=== PATIENT | male | born 1960 | race Caucasian/White ===

== ENCOUNTER 2018-01-12 14:41 | Observation (INO) ==
--- NOTE | 2018-01-12 14:51 | Emergency Department Note ---
Disposition Clinical Impression: Cerebrovascular accident Qualifiers: CVA mechanism: unspecified Qualified Code(s): I63.9 - Cerebral infarction, unspecified Disposition: Admitted As Inpatient Condition: Undetermined Referrals: NONE,PCP [Primary Care Provider] - Forms: ED Satisfaction Letter Time of Disposition: 16:17 Neuro HPI - General Chief Complaint: ED Headache Stated Complaint: ONEAL/N/T Time Seen by Provider: 01/12/18 14:44 Source: patient Mode of arrival: ambulatory Limitations: no limitations Nursing Notes Reviewed: Yes Vital Signs Reviewed: Yes - History of Present Illness HPI Narrative: 57-year-old male with uncontrolled hypertension arrives to the emergency department with complaint of right sided facial and upper and lower extremity numbness and paresthesias that started at roughly 1400, roughly 45 minutes prior to arrival. The patient denies any weakness, confusion, difficulty with vision, or any other associated complaints at this time. He is resting comfortably in the room. Last known well at 1400. The patient denies any previous CVA in the past. Patient states he is noncompliant with his medications. - Related Data Home Medications: Home Medications Medication Instructions Recorded Confirmed No Known Home Drugs 01/12/18 01/12/18 Allergies/Adverse Reactions: Allergies Allergy/AdvReac Type Severity Reaction Status Date / Time No Known Allergies Allergy Verified 01/12/18 15:08 All systems ED: reviewed and negative except as stated. Constitutional: Denies: fever, chills, weakness ENT ED: Denies: dysphagia Cardiovascular: Denies: chest pain Respiratory: Denies: dyspnea Gastrointestinal: Denies: abdominal pain Genitourinary: Denies: urgency Musculoskeletal: Denies: back pain Integumentary: Denies: rash Neurological: Reports: numbness, paresthesias. Denies: headache, weakness, confusion, abnormal gait Past Medical History - Past Medical History Attestation: Yes The following information was validated with the patient. Source: patient Medical history: Reports: hypertension Surgical history: Reports: non-contributory - Social History Smoking Status: Smoker, status unknown Alcohol use: Reports: none Drug use: Reports: none Physical Exam - General Limitations: no limitations General appearance: alert, in no apparent distress - Head Head exam: atraumatic, normocephalic, normal inspection - Eye Eye exam: Present: normal appearance, PERRL, EOMI - ENT ENT exam: normal exam, normal oropharynx, mucous membranes moist - Neck Neck exam: Present: normal inspection, full ROM, trachea midline - Chest Chest inspection: Present: normal inspection, symmetric chest wall rise - Respiratory Respiratory exam: Present: normal lung sounds bilaterally - Cardiovascular Cardiovascular exam: Present: regular rate, normal rhythm, normal heart sounds - Abdominal Exam Abdominal exam: Present: soft, Non-Tender. Absent: tenderness, distention, guarding, rebound, rigidity - Extremities Exam Extremities exam: Present: normal inspection, full ROM. Absent: tenderness, pedal edema - Neurological Exam Neurological exam: Present: alert, oriented X3, CN II-XII intact, normal gait - Expanded Neurological Exam Patient oriented to: Present: person, place, time Speech: Present: fluid speech Cranial nerves: EOM function (II, III, IV, ): Normal, facial sensation (V): Normal, facial palsy (VII): Abnormal Right Cerebellar function: finger to nose: Normal Cerebellar function: normal gait Motor strength - LUE: 5/5 Motor strength - RUE: 5/5 Motor strength - LLE: 5/5 Motor strength - RLE: 5/5 Sensory exam upper extremity: light touch: Abnormal Right Sensory exam lower extremity: light touch: Abnormal Right Coma Scale Eye Opening: Spontaneous Coma Scale Motor Response: Obeys Commands Coma Scale Verbal Response: Oriented Coma Scale Total: 15 - Skin Skin exam: Present: warm, dry, intact, normal color Course Vital Signs Temperature 98.7 F 01/12/18 14:48 Pulse Rate 72 01/12/18 14:48 Respiratory Rate 18 01/12/18 14:48 Blood Pressure 177/87 01/12/18 14:48 O2 Sat by Pulse Oximetry 98 01/12/18 14:48 Temperature 98.7 F 01/12/18 14:48 Pulse Rate 60 01/12/18 16:23 Respiratory Rate 20 01/12/18 15:30 Blood Pressure 168/104 01/12/18 16:23 O2 Sat by Pulse Oximetry 94 01/12/18 16:23 Oxygen Delivery Oxygen Delivery Room Air Neuro Symptoms/Deficit - MDM Narrative Medical decision making narrative: Patient's head CT given streets no acute process. The patient was noted to have an NIH of 1. The patient had consultation with [facility] neurology, Dr. Kern , Who did not recommend TPA. Even the patient's improvement of right lower extremity numbness, we will admit the patient to the hospital with a diagnosis of CVA versus TIA. The patient will likely need CTA of the head and neck as well as Doppler ultrasounds of the carotids an MRI. The patient will be given aspirin here in the emergency department. He will be admitted to the hospital at this time. Accepted by Dr. Ortega. - Lab Data Lab results reviewed: Yes I reviewed the patient's lab results. Result diagrams: 01/12/18 14:55 01/12/18 14:55 Lab Results 01/12/18 01/12/18 01/12/18 Range/Units 14:55 14:55 14:55 WBC 7.9 (4.3-11.1) K/mcL RBC 5.39 (4.19-5.50) M/mcL Hgb 17.5 H (12.9-16.9) g/dL Hct 48.5 (37.5-50.1) % MCV 90.0 (83.0-100.0) fL MCH 32.5 (28.0-33.3) pg MCHC 36.1 H (31.6-35.5) g/dL RDW 12.8 (11.5-14.5) % Plt Count 211 (140-400) K/mcL MPV 10.2 (9.4-12.4) fL Immature Gran % 0.5 (0-4) % Seg Neutrophils % 64.3 % Lymphocytes % 21.4 % Monocytes % 8.0 % Eosinophils % 5.4 % Basophils % 0.4 % Neutrophils # 5.1 (1.6-8.9) K/mcL Lymphocytes # 1.7 (0.6-4.6) K/mcL Monocytes # 0.6 (0.0-1.3) K/mcL Eosinophils # 0.4 (0.0-0.6) K/mcL Basophils # 0.0 (0.0-0.2) K/mcL Immature Plt Fraction 5.0 (1.1-6.1) % PT 11.6 (9.4-12.1) Seconds INR 1.0 APTT 36.6 H (26.0-36.0) Seconds Sodium 140 (136-145) mEq/L Potassium 3.8 (3.5-5.1) mEq/L Chloride 107 (98-107) mEq/L Carbon Dioxide 30 H (23-29) mEq/L BUN 14 (6-20) mg/dL Creatinine 1.20 (0.70-1.30) mg/dL Est GFR ( Amer) > 60 (> 60) Est GFR (Non-Af Amer) > 60 (> 60) BUN/Creatinine Ratio 12 (6-26) Glucose 115 H (70-105) mg/dL Calculated Osmolality 291 (280-300) Calcium 9.2 (8.6-10.3) mg/dL Troponin I < 0.03 (< 0.04) ng/mL - Radiology Data Radiology results reviewed: Yes I reviewed the patient's radiology results. Head CT 01/12/18 14:50 IMPRESSION: No acute intracranial abnormality. Evidence of a remote lacunar infarct along the left basal ganglia. Patchy hypodensities in the periventricular and subcortical white matter, which are nonspecific, but may represent chronic small vessel ischemic change. D/ / 01/12/2018 15:35:01 Jl Lee MD / kevan Interpreting Provider: Jl Lee MD - EKG Data EKG attestation: Yes I reviewed and interpreted this EKG. EKG results narrative: Heart rate 62 beats for minute. Normal sinus rhythm. No ST elevation or ST depression noted. No acute changes noted. NIH Stroke Scale - Level of Consciousness LOC: Alert - LOC Questions LOC Questions: Answers both correctly - LOC Commands LOC Commands: Performs both correctly - Best Gaze Best Gaze: Normal - Visual Visual: No visual loss - Facial Palsy Facial Palsy: Normal - Motor Arms Motor Arm-Left: No drift for 10 seconds Motor Arm-Right: No drift for 10 seconds - Motor Legs Motor Leg-Left: No drift for 5 seconds Motor Leg-Right: No drift for 5 seconds - Limb Ataxia Limb Ataxia: Normal, No Ataxia - Sensory Sensory: Mild to moderate loss, "not as sharp" - Best Language Best Language: No aphasia - Dysarthria Dysarthria: Normal - Extinction and Inattention Extinction and Inattention: Normal - NIHSS Total Score NIHSS Total Score: 1 Attestation Statement - Attestation Attestation: I examined this patient and my medical decision-making was reviewed with the Resident Physician. I agree with the documented findings, disposition and treatment plan as described except to the extent set forth below. An age score is 1, sensory impairment only, patient was evaluated emergently with head CT which is remote infarct, will give aspirin. We did discuss with the on-call neurologist and through direct visualization with [facility] stroke work the possibility of giving TPA however the patient is advised the risks and benefits by the on-call neurologist rectally via video conference. The patient is not in agreement to receive TPA at this time. His symptoms are improving. Suspect TIA. I spent greater than 35 minutes of critical care time resuscitating this acutely ill patient suffering from TIA versus CVA. This was excluding billable procedures.
[2018-01-12 15:03] LABS: Basophils % 0.4 %; Eosinophils # 0.4 K/mcL (0.0-0.6); Eosinophils % 5.4 %; Hematocrit 48.5 % (37.5-50.1); Hemoglobin 17.5 g/dL (12.9-16.9); Immature Granulocytes % 0.5 % (0-4); Lymphocytes # 1.7 K/mcL (0.6-4.6); Lymphocytes % 21.4 %; Mean Corpuscular HGB Conc 36.1 g/dL (31.6-35.5); Mean Corpuscular Hemoglobin 32.5 pg (28.0-33.3); Mean Platelet Volume 10.2 fL (9.4-12.4); Monocytes # 0.6 K/mcL (0.0-1.3); Neutrophils # 5.1 K/mcL (1.6-8.9); Platelet Count 211 K/mcL (140-400); Red Blood Count 5.39 M/mcL (4.19-5.50); Red Cell Distribution Width 12.8 % (11.5-14.5); Segmented Neutrophils % 64.3 %
[2018-01-12 15:07] LABS: Prothrombin Time 11.6 Seconds (9.4-12.1)
[2018-01-12 15:10] LABS: Activated Partial Thrombo Time 36.6 Seconds (26.0-36.0)
[2018-01-12 15:21] LABS: Troponin I < 0.03 ng/mL (< 0.04)
[2018-01-12 15:27] LABS: BUN/Creatinine Ratio 12 (6-26); Blood Urea Nitrogen 14 mg/dL (6-20); Calcium 9.2 mg/dL (8.6-10.3); Carbon Dioxide 30 mEq/L (23-29); Chloride 107 mEq/L (98-107); Glucose 115 mg/dL (70-105); Osmolality,Calculated 291 (280-300); Potassium 3.8 mEq/L (3.5-5.1); Sodium 140 mEq/L (136-145); eGFR For Non-African Americans > 60 (> 60)
[2018-01-12] MEDS ORDERED: Aspirin 325 MG TABLET PO ONE (16:02)
[2018-01-12] MEDS ORDERED: Naloxone 0.4 MG/ML INJ IVP PRN (19:25)
[2018-01-12] MEDS ORDERED: Isovue-370 500 ML INFUS..BTL IV ONE (19:32)
--- NOTE | 2018-01-12 21:08 | Internal Med History&Physical ---
Date of Encounter: 01/12/18 Time of Encounter: 19:30 Internal Medicine - H&P: HPI Chief complaint: R sided numbness Admitted From: Home History of present illness: Mr. Garcia is a 57 year old male with past history of hypertension complicated by noncompliance to medication presented to the ED with acute onset of right- sided numbness. Started at 2 PM, while he was working on his phone. Sudden, associated with numbness of right side of the face, UE, and LE. No facial droop , slurring of speech, headache, blurring of vision, or vertigo. No dysphagia, dysphonia, or diplopia. Did not have any similar episodes in the past. Currently smoking half a pack a day for the last 40 years. In the ED, he was afebrile and hemodynamically stable. NIHSS [address] head negative for acute intracranial processes but showed old lacunar infarct in left basal ganglia. He presented 45 minutes after the onset of his symptoms and after discussing with the on-call neurologist at [facility] stroke, the decision was made to defer tPA as patient was not in agreement to receive the therapy and his symptoms have been improving. He was given aspirin and admitted for further management Past Med Surg Social Fam HX - Past Medical History Attestation: Yes The following information was validated with the patient. Medical history: hypertension Psychiatric history: no psych history - Past Surgical History Surgical History: non-contributory - Social History Smoking Status: Smoker, status unknown Packs per day: 1/2 Smokeless Tobacco Status: No Alcohol use: none Drug use: none - Family History Father Living Status: Hx Family Cancer: Yes Mother Living Status: Cause of : brain aneurysm Internal Medicine - H&P: Meds No Known Home Drugs 01/12/18 [History] 3 Allergy/AdvReac Type Severity Reaction Status Date / Time No Known Allergies Allergy Verified 01/12/18 15:08 All Systems PM: A 10-system review of systems was performed and is negative for pertinent findings except as documented above in the HPI. - Constitutional Vitals: Temp Pulse Resp BP Pulse Ox 98 F 62 15 146/96 97 01/12/18 18:20 01/12/18 18:20 01/12/18 18:20 01/12/18 18:20 01/12/18 20:14 Exam: General: Alert and oriented HEENT:EOM, pupils equal, round, and reactive. Cardiovascular:Normal S1 & S2, no murmurs or gallops. No JVD. Pulse regular. Lungs:Normal breath sounds, no wheezes or crackles. Abdomen:Soft, non-tender, no rigidity. Extremities:No deformity, no edema or tenderness, no joint swelling. Neurological: CN II-XII intact, full motor function in all 4 limbs. Paresthesia over R upper/lower face, R UE, R LE. No pronator drift. Babinski downgoing. No cerebellar signs. Skin:Normal color, no rash, no lesions. Pulses:Carotid and radial pulses normal +2. Rest of the physical exam is non-contributory Internal Med - H&P Results - Labs CBC & Chem 7: 01/12/18 14:55 01/12/18 14:55 - Assessment and plan (1) TIA (transient ischemic attack) Current Visit: Yes Status: Acute Assessment and plan: Symptoms suggestive of acute neurological insult, especially with his risk factors of HTN and smoking Did not get TPA as per patient preference. Loaded with aspirin in the ED, continue NIH score per protocol check lipid panel, A1c telemetry to look for arrhythmia MRI brain head and neck vasculature imaging with CT echocardiogram PT/OT (2) Hypertension Current Visit: Yes Status: Chronic Assessment and plan: Allow permissive hypertension Qualifiers: Hypertension type: unspecified Qualified Code(s): I10 - Essential (primary ) hypertension (3) Tobacco use disorder Current Visit: Yes Status: Acute Assessment and plan: Counseled on smoking cessation Nicotine replacement therapy (4) DVT prophylaxis Current Visit: Yes Status: Acute Assessment and plan: SQ heparin - Time Spent With Patient Total time spent is greater than 50% in coordination of care (as documented) at patient's floor/unit and/or counseling patient:
[2018-01-12] MEDS: Nicotine 14 MG PATCH.TD24 TD SCH (22:38)
[2018-01-13 05:31] LABS: Basophils % 0.2 %; Eosinophils # 0.4 K/mcL (0.0-0.6); Eosinophils % 5.5 %; Hematocrit 45.5 % (37.5-50.1); Hemoglobin 16.4 g/dL (12.9-16.9); Immature Granulocytes % 0.5 % (0-4); Lymphocytes # 1.6 K/mcL (0.6-4.6); Lymphocytes % 20.1 %; Mean Corpuscular Hemoglobin 31.7 pg (28.0-33.3); Mean Corpuscular Volume 87.8 fL (83.0-100.0); Mean Platelet Volume 10.4 fL (9.4-12.4); Monocytes # 0.6 K/mcL (0.0-1.3); Monocytes % 7.8 %; Neutrophils # 5.3 K/mcL (1.6-8.9); Platelet Count 203 K/mcL (140-400); Red Blood Count 5.18 M/mcL (4.19-5.50); Red Cell Distribution Width 12.9 % (11.5-14.5); Segmented Neutrophils % 65.9 %
[2018-01-13 05:51] LABS: Alanine Aminotransferase 37 Units/L (7-52); Albumin/Globulin Ratio 1.8 (1.1-2.2); Alkaline Phosphatase 68 Units/L (34-104); Aspartate Amino Transferase 26 Units/L (13-39); BUN/Creatinine Ratio 16 (6-26); Bilirubin,Total 0.5 mg/dL (0.3-1.0); Blood Urea Nitrogen 15 mg/dL (6-20); Calcium 8.8 mg/dL (8.6-10.3); Carbon Dioxide 24 mEq/L (23-29); Chloride 107 mEq/L (98-107); Chol/HDL Ratio 3.6 (0-4.9); Cholesterol 123 mg/dL (< 200); Globulin 2.2 g/dL (2.4-3.5); Glucose 111 mg/dL (70-105); HDL Cholesterol 34 mg/dL (40-59); LDL Cholesterol,Calculated 70 mg/dL (0-99); Osmolality,Calculated 288 (280-300); Potassium 3.4 mEq/L (3.5-5.1); Sodium 138 mEq/L (136-145); Total Protein 6.2 g/dL (6.4-8.9); Triglycerides 95 mg/dL (< 150); eGFR For Non-African Americans > 60 (> 60)
[2018-01-13] MEDS: *HR* Heparin 5,000 UNIT/ML VIAL SQ SCH ×2 (06:51→16:46)
[2018-01-13 06:54] LABS: Estimated Average Glucose 114 mg/dl; Hemoglobin A1C 5.6 %
[2018-01-13] MEDS ORDERED: Aspirin Enteric Coated 81 MG Tablet PO SCH (09:00)
[2018-01-13] MEDS: Nicotine 14 MG PATCH.TD24 TD SCH (09:07)
--- NOTE | 2018-01-13 09:58 | Internal Med Progress Note ---
<Magali Cornejo P - Last Filed: 01/13/18 17:21> Date of Encounter: 01/13/18 Time of Encounter: 10:00 - Assessment and plan (1) Hypertension Status: Chronic Assessment and plan: He is a know case of HTN under medication His recent BP under control : 147/87 Qualifiers: Hypertension type: unspecified Qualified Code(s): I10 - Essential (primary ) hypertension (2) Cerebrovascular accident Status: Acute Assessment and plan: He has right sided paresthesia in face, upper and lower extremities. He is on Asprin CT head : remote lacunar infarct left side Patchy hypodensities in periventricular and subcortical area . CT angio head and neck awaited and MRI brain report; Left thalamic infarction and chronic microvascular ischaemic changes Neurology physican , occupational and physical therapist involved Qualifiers: CVA mechanism: embolism Qualified Code(s): I63.412 - Cerebral infarction due to embolism of left middle cerebral artery - Subjective Interval history: Today is 1st day of admission.He is a 57 year old male with hypertension non compliance to medication presented to the ED with acute onset of right-sided numbness and paresthesia . It started while he was working on his phone. The paresthesia was Sudden, associated with numbness of right side of the face, upper and lower extremity . No facial droop, slurring of speech, headache, blurring of vision, or vertigo,LOC,fall , seizure . He denies dysphagia, dysphonia, or diplopia. It is first episode . He is a chronic smoker smoking half a pack a day for the last 40 years. In ED ,CT head was negative for acute intracranial processes but showed old lacunar infarct in left basal ganglia. He presented 45 minutes after the onset of his symptoms an decision was made to defer tPA as patient was not in agreement to receive the therapy and his symptoms have been improving. He is on aspirin and heparine . He states that the paresthesia in lower limb is getting better and upper limb and face is the same but not getting worse. CT head shows: Remote lacunar infarct , patchy hypodensities in periventricular and subcortical area.CT angio head and neck awaited: MRI brain report : Left thalamic infarction and chronic microvascular changes. Neuro/occupational Physical therapist has already been scheduled Todays Vital BP 147/87 , afebrile - Constitutional Vitals: Temp Pulse Resp BP Pulse Ox 97.9 F 60 17 147/86 95 01/13/18 07:20 01/13/18 07:20 01/13/18 07:20 01/13/18 07:20 01/13/18 07:20 - Head Head exam: Present: atraumatic, normal inspection, normocephalic - Neck Additional comments: No JVD , supple - Respiratory Additional comments: Normal chest expansion, normal air entry both side, no rales or rhonchi - Cardiovascular Additional comments: Normal rate and rhythm, S1S2 normal, no murmur or added sound - GI/Abdominal Additional comments: Soft warm ,no tenderness ,no organomegaly, BS + - Neurological Exam Neurological exam: Present: abnormal gait, alert, CN II-XII intact, oriented X3 , reflexes normal Additional comments: He has paresthesia in right side , it is more prominent in right side of face and upper extremity , but present in lower extremity , but less, no facial deviation. He has normal motor strength 5/5 in both upper and lower limb , reflexes normal, no muscle wasting, no foot drop, no swelling in calf, peripheral pulsation intact. Internal Medicine: Result - Labs CBC & Chem 7: 01/13/18 04:45 01/13/18 04:45 Labs: Short CBC 01/13/18 Range/Units 04:45 WBC 8.1 (4.3-11.1) K/mcL Hgb 16.4 (12.9-16.9) g/dL Hct 45.5 (37.5-50.1) % Plt Count 203 (140-400) K/mcL Neutrophils # 5.3 (1.6-8.9) K/mcL BMP 01/13/18 04:45 Sodium 138 Potassium 3.4 L Chloride 107 Carbon Dioxide 24 BUN 15 Creatinine 0.94 Glucose 111 H Calcium 8.8 Liver Function 01/13/18 Range/Units 04:45 Total Bilirubin 0.5 (0.3-1.0) mg/dL AST 26 (13-39) Units/L ALT 37 (7-52) Units/L Alkaline Phosphatase 68 (34-104) Units/L Albumin 4.0 (3.5-5.7) g/dL - ABG Interpretation ABG results: PT/INR, D-dimer PT 11.6 Seconds (9.4-12.1) 01/12/18 14:55 - Impressions Impressions Echocardiogram 01/13/18 07:00 Impressions: LVEF 60%. Normal LV chamber size, wall thickness and function. Mild left ventricular diastolic dysfunction. Normal right ventricular structure and function. Unable to estimate RVSP due to lack of TR jet. No significant valvular dysfunction. Negative agitated saline study for intra-cardiac shunting. Left Ventricular Wall Motion: Rest Echo Findings All wall segments showed normal motion. Findings: Study Quality * Technically adequate exam. ECG Findings * Normal sinus rhythm. Left Ventricle * LVEF 60%. * Normal LV chamber size, wall thickness and function. * Mild left ventricular diastolic dysfunction. Right Ventricle * Normal right ventricular structure and function. Left Atrium * Normal left atrial size. Right Atrium * Normal right atrial size. Aortic Valve * Aortic valve not well visualized. * No aortic regurgitation. * No aortic stenosis. Mitral Valve * Mildly thickened mitral valve leaflets. * No mitral regurgitation. * No mitral stenosis. Tricuspid Valve * Normal tricuspid valve structure and function. * No tricuspid regurgitation. * Unable to estimate RVSP due to lack of TR jet. Pulmonic Valve * Normal pulmonic valve structure and function. * No pulmonic regurgitation. Aorta * Normally sized aortic root. Pericardium * The pericardium appears normal. IVC * Normal IVC dimensions and inspiratory collapse. Pulmonary Artery * Normal visualized portions of the main pulmonary artery. 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) Referrals: NONE,PCP [Primary Care Provider] - Prescriptions: Atorvastatin [Lipitor] 40 mg PO HS #30 tablet Lisinopril [Zestril] 2.5 mg PO DAILY #30 tablet <Ramon Cotter - Last Filed: 01/14/18 19:25> Date of Encounter: 01/13/18 - Assessment and plan (1) Cerebrovascular accident Status: Acute Qualifiers: CVA mechanism: thrombosis Precerebral and cerebral artery: middle cerebral artery Laterality of affected vessel: left Qualified Code(s): I63.312 - Cerebral infarction due to thrombosis of left middle cerebral artery (2) Hypertension Status: Chronic Qualifiers: Hypertension type: essential hypertension Qualified Code(s): I10 - Essential (primary) hypertension (3) Tobacco abuse Status: Chronic - Constitutional Vitals: Temp Pulse Resp BP Pulse Ox 97.6 F 72 18 150/83 100 01/13/18 16:03 01/13/18 16:03 01/13/18 16:03 01/13/18 16:03 01/13/18 16:03 Internal Medicine: Result - Labs CBC & Chem 7: 01/13/18 04:45 01/13/18 04:45 - ABG Interpretation ABG results: PT/INR, D-dimer PT 11.6 Seconds (9.4-12.1) 01/12/18 14:55 - Attending Attestation Please see discharge summary of this date.
[2018-01-13 16:08] VITALS: BP 150/83
--- NOTE | 2018-01-13 16:55 | Electrocardiograph Report ---
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
[2018-01-13] MEDS ORDERED: amLODIPine 5 MG TABLET PO SCH (17:15)
--- NOTE | 2018-01-13 17:45 | Discharge Summary ---
<Magali Cornejo P - Last Filed: 01/13/18 17:29> - NOTES TO OUTPATIENT PROVIDER Notes to Outpatient Provider: Follow up with Neurology Physician and PCP in out patient unit Date of Encounter: 01/13/18 Time of Encounter: 04:00 - Discharge Diagnosis (1) Hypertension Priority: Primary (He is on aspirin , symptoms are improving) Status: Chronic Comments: He is on low dose anti hypertensive . His BP is 147/87 now Qualifiers: Hypertension type: essential hypertension Qualified Code(s): I10 - Essential (primary) hypertension (2) Cerebrovascular accident Priority: Primary Status: Acute Comments: He is on Aspirin Symptoms are getting better than before Qualifiers: CVA mechanism: embolism Precerebral and cerebral artery: middle cerebral artery Laterality of affected vessel: left Qualified Code(s): I63.412 - Cerebral infarction due to embolism of left middle cerebral artery (3) Tobacco use disorder Priority: Secondary Status: Chronic (4) DVT prophylaxis Priority: Secondary Status: Resolved Hospital course: Isabelle lorenz is a 57 year old male with chronic hypertension non compliance to medication presented to the ED with acute onset of right-sided numbness and paresthesia on 01/12. It started while he was working on his phone. The paresthesia was sudden, associated with numbness of right side of the face, upper and lower extremity . No facial droop, slurring of speech, headache, blurring of vision, or vertigo,LOC,fall , seizure . He denies dysphasia, dysphonia, or diplopia. It is first episode . He is a chronic smoker smoking half a pack a day for the last 40 years. In ED ,CT head was negative for acute intracranial processes but showed old lacunar infarct in left basal ganglia. He presented 45 minutes after the onset of his symptoms an decision was made to defer tPA as patient was not in agreement to receive the therapy and his symptoms have been improving. He was put on aspirin and heparin . He states that the paresthesia in lower limb is getting better and upper limb and face is the same but not getting worse. CT head shows: Remote lacunar infarct , patchy hypodensities in periventricular and subcortical area. MRI brain report : Left thalamic infarction and chronic microvascular changes. Ct angio-neck:Acute ischemic lacunar infarct in the left thalamus, no hemorrhage and mass effect Neuro/occupational Physical therapist has already been scheduled Today's Vital BP 147/87 , afebrile ,saturation 100% , pulse 72 . We are discharging him on antihypertensive medication: lisinopril 2.5 mg OD, artorvastatine and aspirin. - Time Spent with Patient Total time spent providing and/or coordinating discharge services: - Discharge Medications Prescriptions: Atorvastatin [Lipitor] 40 mg PO HS #30 tablet Lisinopril [Zestril] 2.5 mg PO DAILY #30 tablet Home Medications: Aspirin Enteric Coated [Aspirin EC] 81 mg PO DAILY tablet. 01/13/18 [Rx] Atorvastatin [Lipitor] 40 mg PO HS #30 tablet 01/13/18 [Rx] Lisinopril [Zestril] 2.5 mg PO DAILY #30 tablet 01/13/18 [Rx] Nicotine Patch [Nicoderm] 14 mg TD DAILY patch.td24 01/13/18 [Rx] Allergies/Adverse Reactions: 3 Allergy/AdvReac Type Severity Reaction Status Date / Time No Known Allergies Allergy Verified 01/12/18 15:08 Date of admission: 01/12/18 17:26 Primary care physician: PCP NONE Consults: 01/12/18 18:28 Consult to [facility] [CONS] Routine Reason for SW Consult: financial concerns - Constitutional Vitals: Temp Pulse Resp BP Pulse Ox 97.6 F 72 18 150/83 100 01/13/18 16:03 01/13/18 16:03 01/13/18 16:03 01/13/18 16:03 01/13/18 16:03 General appearance: Present: A&O X 3, pleasant, answers questions appropriately - Head Head exam: Present: atraumatic, normal inspection, normocephalic - Neck Neck exam general surgery: Present: supple (No JVD , no carotid bruits) - Respiratory Additional comments: Normal chest expansion both side , no rales and rhonchi - Cardiovascular Additional comments: Normal rate and rhythm, no murmur, S1S2 normal - GI/Abdominal Additional comments: Soft, normal bowel sound, no organomegaly, no rigidity and tenderness - Extremities Exam Additional comments: No leg swelling, no calf swelling , edema - Neurological Exam Neurological exam: Present: alert, CN II-XII intact, normal gait, oriented X3, reflexes normal, no focal deficits, strengths equal and symetr throughout Additional comments: No facial droop, moderate paresthesia over right upper and lower extremties including face - Patient Status Disposition: Home, Self-Care Condition: Good Functional capacity at discharge: independent ambulation Overall status at discharge: patient is progressing back to baseline - Discharge Instructions Instructions: Lisinopril (By mouth), Atorvastatin (By mouth), Ischemic Stroke ( DC), Ischemic Stroke (GEN), Chronic Hypertension (DC), Cigarette Smoking and Your Health, 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) Forms: Inpatient Work/School Release - Diet and Activity Activity: increase activity as tolerated Diet: low salt diet <Ramon Cotter - Last Filed: 01/13/18 19:04> Date of Encounter: 01/13/18 - Discharge Diagnosis (1) Cerebrovascular accident Status: Acute Qualifiers: CVA mechanism: thrombosis Precerebral and cerebral artery: middle cerebral artery Laterality of affected vessel: left Qualified Code(s): I63.312 - Cerebral infarction due to thrombosis of left middle cerebral artery (2) Hypertension Status: Chronic Qualifiers: Hypertension type: essential hypertension Qualified Code(s): I10 - Essential (primary) hypertension (3) Tobacco abuse Priority: Secondary Status: Chronic Hospital course: Mr. Garcia is a 57 year old male Pt advised to take BP meds and quit smoking. 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 Discharge discussed with: patient, family - Time Spent with Patient Total time spent providing and/or coordinating discharge services: 42min Date of admission: 01/12/18 17:26 Primary care physician: PCP NONE Consults: 01/12/18 18:28 Consult to [facility] [employer] [CONS] Routine Reason for SW Consult: financial concerns Discharging clinician: Ramon Cotter Anticipated date of discharge: 01/13/18 - Constitutional Vitals: Temp Pulse Resp BP Pulse Ox 97.6 F 72 18 150/83 100 01/13/18 16:03 01/13/18 16:03 01/13/18 16:03 01/13/18 16:03 01/13/18 16:03 - Attending Attestation I examined this patient and my medical decision-making was reviewed with the Resident Physician on 01/13/18. I agree with the documented findings, disposition and treatment plan as described except to the extent set forth below. Mr Garcia has been hospitalized for acute neuro symptoms. He has been found to have acute lacunar infarct due to hypertension and small vessel disease. He still has some numbness on R side. He is afebrile and is ready for discharge home. Exam alert Comfortable Mucus membranes dry Heart reg No wheeze abd soft No edema Plan D/C home I have started him on Lisinopril 2.5mg daily. A script for 5mg tablets sent to [facility] ($4 for 30 pills). He is to [place] on way back to [place] today. He was also given script for Lipitor 40mg daily to fill in [place] and is to take ASA. He was told to monitor BP and the need for his meds as well as smoking cessation. He was given off work slip till 01/25.
== END 2018-01-13 18:42 | disposition home or self-care (01) ==
LOC: EMEROO 14:41 → 2NENU 14:41 → SUATTDRO 17:26 → 2NENU 17:55
PROVIDERS: ADMIT Internal Medicine; ATTEND Internal Medicine